=== PATIENT | male | born 1980 | race Caucasian/White ===

== ENCOUNTER 2022-06-24 12:25 | Emergency (ER) | payer MEDICAID ==
[~2022-06-24] VITALS: Ht 170.2 cm; Wt 81.8 kg
[2022-06-24] MEDS ORDERED: KETOROLAC TROMETHAMINE 30 MG/ML VIAL IVP ONE (12:45)
[2022-06-24] MEDS ORDERED: SODIUM CHLORIDE 0.9% 1,000 ML IV ONE (12:45)
[2022-06-24] MEDS ORDERED: ONDANSETRON HCL 4 MG/2 ML VIAL IVP ONE (12:45)
[2022-06-24] MEDS ORDERED: MORPHINE SULFATE 2 MG/ML SYRINGE IVP ONE (12:45)
[2022-06-24] MEDS ORDERED: SODIUM CHLORIDE 0.9% 100 ML ONE (13:07)
[2022-06-24] MEDS ORDERED: IOHEXOL 350 MG/ML 100 ML VIAL ONE (13:07)
[2022-06-24 13:16] LABS: ANION GAP 6 mmol/L (8-16); BASOPHILS % (AUTO) 0.3 % (0.0-2.0); CALCIUM, TOTAL 9.1 mg/dL (8.8-10.5); CARBON DIOXIDE 29 mmol/L (22-29); CHLORIDE 100 mmol/L (98-107); CREATININE 0.94 mg/dL (0.60-1.30); EOSINOPHILS % (AUTO) 2.1 % (1.0-6.0); GLUCOSE,RANDOM 101 mg/dL (70-110); HEMATOCRIT 46.5 % (41-53); HEMOGLOBIN 15.7 g/dL (13.5-17.5); LYMPHOCYTES # (AUTO) 2.9 K/uL (1.0-4.8); LYMPHOCYTES % (AUTO) 24.7 % (22.0-44.0); MEAN CORPUSCULAR HEMOGLOBIN 27.4 pg (26.0-34.0); MEAN CORPUSCULAR HGB CONC 33.7 G/dL (31.0-37.0); MEAN CORPUSCULAR VOLUME 81 fL (80-100); MONOCYTES # (AUTO) 1.2 K/uL (0.1-1.0); MONOCYTES % (AUTO) 9.9 % (2.0-9.0); NEUTROPHILS # (AUTO) 7.4 K/uL (1.8-7.7); PLATELET COUNT (AUTO) 265 K/uL (150-450); RED BLOOD CELL COUNT(AUTO) 5.72 MIL/uL (4.50-5.90); RED CELL DISTRIBUTION WIDTH 13.8 % (11.5-14.5); SODIUM SERUM 135 mmol/L (136-145); UREA NITROGEN, BLOOD 19 mg/dL (7-18)
[2022-06-24 13:22] LABS: ALANINE AMINOTRANSFERASE 28 U/L (12-78); ALBUMIN 3.9 g/dL (3.4-5.0); ALKALINE PHOSPHATASE 76 U/L (46-116); ASPARTATE AMINOTRANSFERASE 10 U/L (15-37); BILIRUBIN,TOTAL 0.5 mg/dL (0.1-1.0); LIPASE 163 U/L (73-393); TOTAL PROTEIN, SERUM 7.7 g/dL (6.4-8.2)
[2022-06-24 13:26] LABS: GLOMERULAR FILTR. RATE CALC > 60 mL/min (>60)
[2022-06-24 13:39] VITALS: BP 123/89
== END 2022-06-24 14:10 | disposition home or self-care (01) ==
LOC: EMS 12:30
DX: K42.9 Umbilical hernia without obstruction or gangrene (principal); R19.7 Diarrhea, unspecified
CPT/HCPCS: 99285; 74177; 96374; 96375; 96361; 80053; 83690; 85025; 36415; J1885; J2270; J2405; Q9967; J7030; J7050